=== PATIENT | female | born 1940 | race Caucasian/White ===

== ENCOUNTER 2016-09-21 14:06 | Emergency (ER) | payer MEDICARE, OTHER ==
[~2016-09-21 14:06] MED LIST: ACET500CAP PO; AMIT75 PO; ANUSOL HC SUPP1 SUPP PR; APRES25 PO; ASA5GR PO; ASAB PO; ASABAYER PO; ASAEC PO; BACDS PO; BIAXIN5 PO; BUM1 PO; C1 PO; C2 PO; CATAPRES3 TOP; CIP5 PO; CLEOCIN300 MG PO; COREG25 PO; COZ25 PO; COZ50 PO; DEXLANSOPRAZOLE 60 MG; DUONEB INH; FLEX PO; FORTAMET500 MG PO; GLUCOPHAGE1000 MG PO; HYDROCHLOROT12.5 MG PO; HYDROCHLOROT50 MG PO; IMDUR30 PO; IRON PO; IRON SUPPLEMENT PO; JANTOVEN1 MG PO; JANTOVEN2 MG PO; JANTOVEN2.5 MG PO; KLOR-CON M2020 MEQ PO; L20 PO; L40 PO; LANTUS SQ; LES40 PO; LIPITOR20 PO; LOPRESS HCT1 TAB PO; MAGOX4 PO; MEDROLPAK4 PO; MERIPEX; METPAKSF PO; MICRO-K10 MEQ PO; MIRAPEX1.5 MG PO; MIRAPEX5 PO; MUCINEX600 MG PO; NEXIUM40 PO; NITROQUICK0.4 MG SL; NORV10 PO; NORV5 PO; NTG150 SL; PRAVAC PO; PRILOSEC40 MG PO; PRIN20 PO; PROVHFA INH; PROVHFA PO; REFRES1 OP; RYTHMOL225 MG PO; SPIRO50 PO; SUCR PO; T PO; TRAZ50 PO; TRIAMCINOLONE C80 GM T; ZANTAC 150 PO; ZANTAC150 MG PO; ZANTAC300 MG PO; ZYRTEC ALLGY10 MG PO; [UNRECOGNIZED DRUG - REMARK]
== END 2016-09-21 16:09 | disposition home or self-care (01) ==
LOC: ER 14:06
PROC: 0HQGXZZ Repair Left Hand Skin, External Approach (ICD-10-PCS; principal; 2016-09-21)
DX: S61.412A Laceration without foreign body of left hand, initial encounter (principal); J44.9 Chronic obstructive pulmonary disease, unspecified; I10 Essential (primary) hypertension; I48.91 Unspecified atrial fibrillation; E11.9 Type 2 diabetes mellitus without complications; Z87.891 Personal history of nicotine dependence; Z86.73 Personal history of transient ischemic attack (TIA), and cerebral infarction without residual deficits; Z88.0 Allergy status to penicillin; Z88.8 Allergy status to other drugs, medicaments and biological substances; Z79.899 Other long term (current) drug therapy; Z79.82 Long term (current) use of aspirin; W45.8XXA Other foreign body or object entering through skin, initial encounter
CPT/HCPCS: 90471; 90714; 99283

== ENCOUNTER 2016-09-22 16:29 | Emergency (ER) | payer MEDICARE, OTHER ==
[2016-09-22 15:52] LABS: HEMOGLOBIN 10.1 g/dL (12.0-16.0); MEAN CORPUS HGB CONC 32.6 g/dL (32.0-36.0); MEAN CORPUSCULAR HEMOGLOB 27.2 pg (26.0-34.0); MEAN CORPUSCULAR VOLUME 83.6 fL (80-100); MEAN PLATELET VOLUME 9.6 fL (9.2-13.0); PLATELET COUNT 267 10/3/uL (150-400); RBC DISTRIBUTION WIDTH 15.4 % (12.0-16.0); RED CELL COUNT 3.71 10/6/uL (4.0-5.6); WHITE BLOOD CELLS 6.4 10/3/uL (4.5-10.5)
[2016-09-22 16:00] LABS: INTERNATIONAL NORMAL RATI 2.3 UNITS (-); PROTIME (NOT ORD) 24.9 SEC (12.0-14.5)
[2016-09-22 16:06] LABS: A/G RATIO 0.7 (0.7-1.9); ALBUMIN 3.1 G/DL (3.5-5.0); ALKALINE PHOSPHATASE 86 U/L (45-117); BUN (BLOOD UREA NITROGEN) 17 MG/DL (6-23); CALCIUM, SERUM 8.4 MG/DL (8.5-10.4); CHLORIDE, SERUM 100 MMOL/L (96-112); CO2 (CARBON DIOXIDE) 25 MMOL/L (24-34); CREATININE 0.87 MG/DL (0.55-1.02); GFR AFRICAN AMERICAN 75 ML/MIN (>=60); GFR NON AFRICAN AMERICAN 65 ML/MIN (>=60); GLOBULIN 4.2 G/DL (2.5-4.1); GLUCOSE, SERUM 98 MG/DL (60-99); POTASSIUM, SERUM 4.7 MMOL/L (3.5-5.3); SGOT(AST) 16 U/L (5-40); SGPT(ALT) 22 U/L (5-65); SODIUM, SERUM 136 MMOL/L (135-148); TOTAL BILIRUBIN 0.3 MG/DL (0-1.2); TOTAL PROTEIN 7.3 G/DL (6.0-8.5)
== END 2016-09-22 17:12 | disposition home or self-care (01) ==
LOC: ER 16:29
PROVIDERS: Emergency Medicine
DX: S61.412A Laceration without foreign body of left hand, initial encounter (principal); E11.9 Type 2 diabetes mellitus without complications; Z86.73 Personal history of transient ischemic attack (TIA), and cerebral infarction without residual deficits; I11.0 Hypertensive heart disease with heart failure; I50.9 Heart failure, unspecified; I48.91 Unspecified atrial fibrillation; W55.03XA Scratched by cat, initial encounter; Z88.0 Allergy status to penicillin; Z88.5 Allergy status to narcotic agent; Z88.8 Allergy status to other drugs, medicaments and biological substances; Z79.899 Other long term (current) drug therapy; Z79.82 Long term (current) use of aspirin
CPT/HCPCS: 80053; 85027; 85610; 99283

== ENCOUNTER 2016-10-28 15:04 | Inpatient (IN) | payer MEDICARE, OTHER ==
--- NOTE | ~2016-10-28 | DS ---
Discharge Summary [facility] [address] [place]. [address] NAME: JUSTA CASTILLO : 40 STATUS : DIS IN PAT#: [id number] AGE: 76 ADM/REG DATE : 10/28/16 MR#: [id number] REPORT SERV DATE: 11/01/16 DICTATED BY: WESLEY SEARS DATE: 10/31/16 REPORT STATUS : Draft TRANSCRIBED BY: MODVelma DATE: 10/31/16 ADMISSION DATE: 10/28/2016 DISCHARGE DATE: 10/31/2016 REASON FOR ADMISSION: Orthostatic hypotension, vasovagal syncope, dehydration, acute kidney injury. HPI: Please refer to my history and physical dated 10/28 for complete details regarding the patient's admission. In brief, the patient was admitted to the Hospitalist Service for vasovagal syncope, orthostasis, dehydration, UTI, hyponatremia. HOSPITAL COURSE: The patient had an uncomplicated hospital course. She just had been discharged from the ER for a hypertensive emergency episode. She was discharged with a prescription for lisinopril for which she did not get filled. She got home sometime between 2 a.m. and 4 a.m. Home health nurse had knocked on her door. The patient had woken up, and as soon as she stood up, she had passed out. She felt very weak. She had actually felt too weak that she crawled to the front door and had to use a cane to open up and let the home health nurse in. The home health nurse found her on the floor. She had checked her blood pressure and it was in the 80s and the home health nurse told her to come to the ER. In the ER, she was found to be normotensive at that time, but did have hyponatremia and acute kidney injury. The patient was admitted to the Hospitalist Service. I admitted the patient, started her on IV fluids. Her creatinine had come back down towards normal. UA was obtained, which showed an E. coli urinary tract infection for which antibiotics were started. Once we got her blood pressure up, we had issues trying to bring it back down. I started her on lisinopril 20 mg twice a day and scheduled with hydralazine. She had some systolic blood pressures in the 190s to 200s; however, the last 4 vital sign readings, her systolic blood pressure has ranged in between the 140s to 150s. On physical exam, a day or two after admission the patient was complaining of some wheezing and felt concerned that she might be having an acute on chronic COPD exacerbation, and started her on steroids. On the day of discharge, she still had some mild wheezing, but was ambulating without any issues. She did admit being short of breath on ambulation, but this is typical for her. She is saturating well on room air and is requesting to go home. The patient will be discharged home in stable condition to follow up with her PCP, Lizet Hernandez. DISCHARGE DIAGNOSES: 1. Acute kidney injury secondary to dehydration, now resolved. 2. Vasovagal syncope secondary to orthostasis, now resolved. 3. Dehydration, now resolved. 4. E. coli urinary tract infection, on oral antibiotics. 5. Acute on chronic COPD exacerbation developed in the hospital, now improving. 6. Hypovolemic hyponatremia, now resolved. 7. History of CVA. 8. Uncontrolled hypertension. PROCEDURES: Include chest x-ray. Discharge Summary [address] [address] NAME: JUSTA CASTILLO : 40 STATUS : DIS IN PAT#: [id number] AGE: 76 ADM/REG DATE : 10/28/16 MR#: [id number] REPORT SERV DATE: 11/01/16 DICTATED BY: WESLEY SEARS DATE: 10/31/16 REPORT STATUS : Draft TRANSCRIBED BY: ISMAEL DATE: 10/31/16 DISCHARGE MEDICATIONS: Include aspirin 81 mg daily, Coreg 25 mg twice a day, Mag oxide 400 mg daily, lisinopril 20 mg twice a day, Nexium 40 mg daily, Mirapex 1.5 mg at bedtime, Rythmol 225 mg twice a day, trazodone 50 mg at bedtime, Coumadin 2 mg daily, metformin 1000 mg twice a day, prednisone 40 mg once a day for four days, albuterol p.r.n., DuoNebs p.r.n., hydralazine 50 mg three times a day. FOLLOWUP: The patient will follow up with Dr. Ceballos as a new patient along with Lizet Hernandez This is Dr. Wesley Sears spending over 30 minutes in discharge planning and coordination of care. We will resume home health. CRISTINE/ISMAEL Wesley Sears MD / [id number] CC: Wesley Sears MD
--- NOTE | ~2016-10-28 | HP ---
History And Physical [place] [id number] [facility] [place]. [address] NAME: JUSTA CASTILLO : 40 STATUS : ADM [employer] PAT#: [id number] AGE: 76 ADM/REG DATE : 10/28/16 MR#: [id number] REPORT SERV DATE: 10/28/16 DICTATED BY: WESLEY SEARS DATE: 10/28/16 REPORT STATUS : Draft TRANSCRIBED BY: ISMAEL DATE: 10/28/16 DATE OF ADMISSION: 10/28/2016 REASON FOR ADMISSION: Vasovagal syncope, orthostasis, dehydration, and urinary tract infection. CHIEF COMPLAINT: "I passed out today and felt very weak and was told to come to the ER by the home health nurse." HISTORY OF PRESENT ILLNESS: A 76-year-old white female with a history of AFib, now currently in sinus after a cardioversion, on chronic Coumadin therapy with chronic diastolic heart failure; type 2 diabetes; COPD; hypertension, actually reported to the ER last night with a hypertensive emergency. Her systolic blood pressure was in the 230s. It was brought down and she was prescribed lisinopril. She was discharged between 2:00 and 4:00 a.m. this morning. She said she got a dose of some medication in the ER for pain, which made her fall asleep as soon as she got home. She woke up when the home health nurse knocked on her door. She went to get up out of bed to answer the door and then passed out as soon as she got up. She came to after a few seconds, but felt too weak and scooted herself to the door, used her cane to let the home health nurse come in. The home health nurse checked her blood pressure and it was reportedly in the 80s and the home health nurse told her she needs to go back to the ER. En route, she got a liter of fluids by the ambulance, and on arrival to the [facility] ER, her blood pressure was 111/50. She was given another liter bolus of lactated Ringer's by Dr. Cano and started on Rocephin. Hospitalist was asked to admit for further evaluation. The patient denies any fever or chills. She does admit to dysuria and a foul-smelling urine. She does admit to decreased p.o. intake. Denies any diarrhea, shortness of breath, or fever. REVIEW OF SYSTEMS: As per HPI. Otherwise, 10-point system were reviewed and are negative. PAST MEDICAL HISTORY: History of atrial fibrillation, now in sinus, on Coumadin therapy; chronic diastolic heart failure with a last known EF of 50% to 55%; [id number] type 2 diabetes; hypertension; COPD, not on home oxygen; coronary artery disease with a remote history of HI; history of CVA with upper extremity paresthesias; restless legs syndrome; and history of a GI bleed. PAST SURGICAL HISTORY: Cholecystectomy, bilateral total knee, abdominal hysterectomy, and back surgery. SOCIAL HISTORY: She was a former smoker, but quit many years ago. Denies any alcohol or illicit drug use. She is with children. FAMILY HISTORY: Mother with diabetes and coronary artery disease. Father with esophageal cancer. Sibling with COPD. ALLERGIES: INCLUDE PENICILLIN WHICH CAUSES HIVES, CARAFATE, CODEINE, FLAGYL, DEXILANT, AND History And Physical [address] [address] NAME: JUSTA CASTILLO : 40 STATUS : ADM [employer] PAT#: [id number] AGE: 76 ADM/REG DATE : 10/28/16 MR#: [id number] REPORT SERV DATE: 10/28/16 DICTATED BY: WESLEY SEARS DATE: 10/28/16 REPORT STATUS : Draft TRANSCRIBED BY: ISMAEL DATE: 10/28/16 [facility]. HOME MEDICATIONS: Include DuoNeb, albuterol p.r.n., aspirin 81 mg daily, carvedilol 25 mg twice a day, Nexium 40 mg daily, magnesium oxide 400 mg daily, Glucophage mg twice a day, Mirapex 1.5 mg at bedtime, Rythmol 225 mg twice a day, Desyrel 50 mg at bedtime, and Coumadin 2 mg daily. PHYSICAL EXAMINATION: VITAL SIGNS: Blood pressure is 124/54, saturating 96% on room air, temperature is 97.7, pulse is 60, and respirations 14. GENERAL: She is in no acute distress, alert and oriented x3, very pleasant, surrounded by lots of family. HEENT: Normocephalic and atraumatic head. Extraocular muscles are intact. Oropharynx is clear. NECK: Supple. No JVD. CARDIAC: Regular rhythm. No murmurs, rubs, or gallops. PULMONARY: Diffuse rhonchi. No wheezing. ABDOMEN: Soft, nontender, and nondistended. Positive bowel sounds. EXTREMITIES: Show no clubbing, no cyanosis or edema. NEUROLOGIC: No focal deficits. SKIN: Warm and dry. PSYCHIATRIC: The patient is cooperative. Mood is appropriate. LABORATORY DATA: Labs show a white blood cell count of 3.5 and hemoglobin 9.5. Sodium of 131, chloride 95, BUN 24, creatinine 1.51, and albumin 2.8. UA shows cloudy appearance, positive leukocytes, 38 white blood cell count, few white blood cell clumps, few bacteria, and 7 hyaline casts. X-ray of the ribs shows no acute process. CT scan of brain without contrast shows no acute intracranial hemorrhage or other acute process. EKG shows sinus rhythm with first-degree AV block. IMPRESSION: 1. Vasovagal syncope. 2. Orthostasis. 3. Dehydration. 4. Urinary tract infection. 5. Hypovolemic hyponatremia. 6. History of atrial fibrillation, currently in sinus, on Coumadin. 7. Chronic obstructive pulmonary disease without exacerbation. 8. History of cerebrovascular accident. PLAN: 1. Plan is to do IV fluids. 2. Continue Rocephin. 3. Follow up her urine culture. 4. Check orthostatics tomorrow to see if she is fully hydrated. The patient is a full code. Anticipate her home in about two to three days. History And Physical [address] [address] NAME: JUSTA CASTILLO : 40 STATUS : ADM [employer] PAT#: [id number] AGE: 76 ADM/REG DATE : 10/28/16 MR#: [id number] REPORT SERV DATE: 10/28/16 DICTATED BY: WESLEY SEARS DATE: 10/28/16 REPORT STATUS : Draft TRANSCRIBED BY: ISMAEL DATE: 10/28/16 SAMI Wesley Sears MD / [id number] CC: Eduardo Roberts Jr, MD
[2016-10-28 15:47] LABS: BASOPHILS 0 %; EOSINOPHILS 0.3 %; EOSINOPHILS ABSOLUTE 0.01 10/3/uL (0.0-0.53); ER CBC TAT 0 Hrs 12 Mins; HEMATOCRIT 28.8 % (36.0-48.0); HEMOGLOBIN 9.5 g/dL (12.0-16.0); IMMATURE GRANULOCYTES 0.3 %; IMMATURE GRANULOCYTES ABSOLUTE 0.01 10/3/uL (0.0-0.11); LYMPHOCYTES 37.9 %; LYMPHOCYTES ABSOLUTE 1.33 10/3/uL (0.67-4.30); MEAN CORPUSCULAR HEMOGLOB 27.4 pg (26.0-34.0); MONOCYTES 10.5 %; MONOCYTES ABSOLUTE 0.37 10/3/uL (0.21-1.20); NEUTROPHILS ABSOLUTE 1.79 10/3/uL (2.02-8.40); PLATELET COUNT 227 10/3/uL (150-400); RBC DISTRIBUTION WIDTH 15.3 % (12.0-16.0); RED CELL COUNT 3.47 10/6/uL (4.0-5.6); WHITE BLOOD CELLS 3.5 10/3/uL (4.5-10.5)
[2016-10-28 15:48] LABS: MANUAL DIFF NO %
[2016-10-28 16:01] LABS: A/G RATIO 0.8 (0.7-1.9); ALBUMIN 2.8 G/DL (3.5-5.0); ALKALINE PHOSPHATASE 74 U/L (45-117); BUN (BLOOD UREA NITROGEN) 24 MG/DL (6-23); CALCIUM, SERUM 7.5 MG/DL (8.5-10.4); CHLORIDE, SERUM 95 MMOL/L (96-112); CO2 (CARBON DIOXIDE) 22 MMOL/L (24-34); CREATININE 1.51 MG/DL (0.55-1.02); GFR AFRICAN AMERICAN 39 ML/MIN (>=60); GFR NON AFRICAN AMERICAN 33 ML/MIN (>=60); GLOBULIN 3.7 G/DL (2.5-4.1); GLUCOSE, SERUM 105 MG/DL (60-99); SGOT(AST) 31 U/L (5-40); SGPT(ALT) 33 U/L (5-65); SODIUM, SERUM 131 MMOL/L (135-148); TOTAL BILIRUBIN 0.7 MG/DL (0-1.2); TOTAL PROTEIN 6.5 G/DL (6.0-8.5); TROPONIN I 0.03 NG/ML (<0.05)
[2016-10-28 16:55] LABS: ASCORBIC ACID (UR NOT ORDER) NEG (NEG); BILIRUBIN, URINE NEGATIVE (NEG); ER URINALYSIS TAT 0 Hrs 10 Mins; KETONE, URINE NEGATIVE (NEG); NITRITE (URINE) NEG (NEG); WBC (NOT ORDERED) (RFLEX) 38 (0-5)
[2016-10-28 16:56] LABS: LEUKOCYTE ESTERASE(NOT OR TRACE (NEG)
[2016-10-28 20:24] LABS: PROCALCITONIN 0.67 ng/mL (<0.5)
[2016-10-28 20:25] LABS: INTERNATIONAL NORMAL RATI 1.7 UNITS (-); PROTIME (NOT ORD) 19.4 SEC (12.0-14.5)
[2016-10-29 08:03] LABS: BASOPHILS 0.3 %; BASOPHILS ABSOLUTE 0.01 10/3/uL (0.0-0.16); EOSINOPHILS 1.5 %; EOSINOPHILS ABSOLUTE 0.05 10/3/uL (0.0-0.53); HEMATOCRIT 26.6 % (36.0-48.0); HEMOGLOBIN 8.8 g/dL (12.0-16.0); IMMATURE GRANULOCYTES 0.3 %; IMMATURE GRANULOCYTES ABSOLUTE 0.01 10/3/uL (0.0-0.11); LYMPHOCYTES 38.1 %; LYMPHOCYTES ABSOLUTE 1.25 10/3/uL (0.67-4.30); MEAN CORPUS HGB CONC 33.1 g/dL (32.0-36.0); MEAN CORPUSCULAR HEMOGLOB 27.6 pg (26.0-34.0); MEAN CORPUSCULAR VOLUME 83.4 fL (80-100); MEAN PLATELET VOLUME 9.3 fL (9.2-13.0); MONOCYTES 9.1 %; NEUTROPHILS 50.7 %; NEUTROPHILS ABSOLUTE 1.66 10/3/uL (2.02-8.40); PLATELET COUNT 210 10/3/uL (150-400); RBC DISTRIBUTION WIDTH 15.3 % (12.0-16.0); RED CELL COUNT 3.19 10/6/uL (4.0-5.6); WHITE BLOOD CELLS 3.3 10/3/uL (4.5-10.5)
[2016-10-29 08:08] LABS: MANUAL DIFF NO %
[2016-10-29 08:12] LABS: INTERNATIONAL NORMAL RATI 1.6 UNITS (-)
[2016-10-29 08:30] LABS: BUN (BLOOD UREA NITROGEN) 27 MG/DL (6-23); CALCIUM, SERUM 7.3 MG/DL (8.5-10.4); CHLORIDE, SERUM 99 MMOL/L (96-112); CO2 (CARBON DIOXIDE) 23 MMOL/L (24-34); CREATININE 1.11 MG/DL (0.55-1.02); GFR AFRICAN AMERICAN 56 ML/MIN (>=60); GFR NON AFRICAN AMERICAN 48 ML/MIN (>=60); GLUCOSE, SERUM 102 MG/DL (60-99); PHOSPHORUS, SERUM 4.2 MG/DL (2.5-4.5); POTASSIUM, SERUM 3.8 MMOL/L (3.5-5.3); SODIUM, SERUM 134 MMOL/L (135-148)
[2016-10-30 06:00] LABS: INTERNATIONAL NORMAL RATI 1.9 UNITS (-); PROTIME (NOT ORD) 21.2 SEC (12.0-14.5)
[2016-10-31 06:34] LABS: INTERNATIONAL NORMAL RATI 2.3 UNITS (-)
[2016-10-31] MEDS ORDERED: PRIN20 PO (12:22)
[2016-10-31] MEDS ORDERED: P20 PO (12:24)
[2016-10-31] MEDS ORDERED: APRES50 PO (12:26)
[2016-10-31] MEDS ORDERED: CEFT5 PO (12:26)
== END 2016-10-31 17:27 | disposition home or self-care (01) | DRG 683 ==
LOC: ER 15:04 → CDU1 17:41 → 7NO 18:06
PROVIDERS: Emergency Medicine; Internal Medicine
DX: N17.9 Acute kidney failure, unspecified (principal); N39.0 Urinary tract infection, site not specified; E11.9 Type 2 diabetes mellitus without complications; E87.1 Hypo-osmolality and hyponatremia; E86.0 Dehydration; I11.0 Hypertensive heart disease with heart failure; I50.32 Chronic diastolic (congestive) heart failure; J44.9 Chronic obstructive pulmonary disease, unspecified; I48.91 Unspecified atrial fibrillation; J44.1 Chronic obstructive pulmonary disease with (acute) exacerbation; B96.20 Unspecified Escherichia coli [E. coli] as the cause of diseases classified elsewhere; I25.2 Old myocardial infarction; Z86.73 Personal history of transient ischemic attack (TIA), and cerebral infarction without residual deficits; Z79.01 Long term (current) use of anticoagulants; Z96.653 Presence of artificial knee joint, bilateral; Z90.49 Acquired absence of other specified parts of digestive tract; Z87.891 Personal history of nicotine dependence; Z88.0 Allergy status to penicillin; Z79.84 Long term (current) use of oral hypoglycemic drugs; Z79.82 Long term (current) use of aspirin; Z79.899 Other long term (current) drug therapy
CPT/HCPCS: 70450; 71010; 71020; 71100-RT; 80048; 80053; 81001; 82962; 83605; 83735; 83880; 84100; 84145; 84484; 85025; 85610; 85730; 87077; 87086; 87186; 93005; 94640; 96360; 96374; 96375; 99284; 99285; A9270-GY; J0360

== ENCOUNTER 2016-11-01 15:11 | Inpatient (IN) | payer MEDICARE, OTHER ==
--- NOTE | ~2016-11-01 | HP ---
History And Physical [place] [id number] [facility] [place]. [address] NAME: JUSTA CASTILLO : 40 STATUS : ADM [employer] PAT#: [id number] AGE: 76 ADM/REG DATE : 11/01/16 MR#: [id number] REPORT SERV DATE: 11/02/16 DICTATED BY: DANA WELSH DATE: 11/01/16 REPORT STATUS : Draft TRANSCRIBED BY: MODVelma DATE: 11/01/16 DATE OF ADMISSION: 11/01/2016 Recent discharge yesterday. CHIEF COMPLAINT: Hallucinations with recurrent syncope, post going to the bathroom. HISTORY OF PRESENT ILLNESS: The patient is a 76-year-old very pleasant, female, accompanied by daughter, granddaughter, and great granddaughter who presents after having repeat episode of syncope like event. Episode occurred this morning after the patient woke up, went to bathroom and on toilet noted that she was unable to get up, had assistance by daughter, noted she had mild unconscious type spell which became cool, had tingling in extremities and somewhat unresponsive. When she started to wake up, she had delirium episodes which prompted emergency room evaluation, was noted to have episodes similar to this after going to the bathroom in the morning. The patient reports that after she left the hospital yesterday she was feeling a lot better and had resolution of symptoms, felt comfortable but symptoms appeared to comes directly back after this morning. Symptoms have been intermittent, [id number]-vzflqlle. Hallucinations including seeing great granddaughter coming from the [place] which she was unable to hold but these have also resolved as the patient has been in a hospital bed lying down and blood pressure has significantly improved from 50 plus points systolically. There are no pain radiating symptoms except at the chest wall in which she had a recent bruising of rib, not fracture but bruising, mild nausea, increased weakness but these are improved. No fever, diarrhea, shortness of breath or chills, has not taken any medications yet, has not been able to fill medications including prednisone and doubt this is a causal agent for acute hallucinations. Symptoms are worsened with change in position improved by lying down. Symptoms, however, spontaneously improved at time of discussion with this proposal manager writer, as the patient recalls having prior admission and discussion prior time in past in July. Family additionally has concerns with medication compliance as she has had elevations and decreases with wide fluctuations of blood pressure medications or blood pressure as the patient also per granddaughter reports that last year she was noted to being adamant that she was taking diuretic but had not filled this medication over six months when this was reviewed with pharmacy. This concern has also been brought up by the patient's event services manager to family as a dementia component may be causal. ADDITIONAL REVIEW OF SYSTEMS: Negative except for that noted in the HPI. PAST MEDICAL HISTORY: Atrial fibrillation, on Coumadin, currently sinus, chronic diastolic heart failure, EF 50% to 55% [id number]-qmgsyumqv diabetes, hypertension, COPD, coronary artery disease, CVA, restless leg, GI bleed. SURGICAL HISTORY: Cholecystectomy, bilateral total knee, abdominal hysterectomy, and back surgery. SOCIAL HISTORY: Former smoker but quit many years ago. Denies alcohol or illicits. Has children and grandchildren and great grandchildren in room. History And Physical [address] [address] NAME: JUSTA CASTILLO : 40 STATUS : ADM [employer] PAT#: [id number] AGE: 76 ADM/REG DATE : 11/01/16 MR#: [id number] REPORT SERV DATE: 11/02/16 DICTATED BY: DANA WELSH DATE: 11/01/16 REPORT STATUS : Draft TRANSCRIBED BY: ISMAEL DATE: 11/01/16 FAMILY HISTORY: Coronary disease, esophageal cancers, siblings with COPD. ALLERGIES: PENICILLIN, CARAFATE, CODEINE, FLAGYL, DEXILANT, AND MAYONNAISE. HOME MEDICATIONS: Including recent discharge including albuterol, Proventil, aspirin, Coreg, Ceftin which the patient has not started, Nexium, hydralazine which has also not been filled, Prinivil new dose has not been started, Mag oxide, metformin Mirapex, Deltasone which has not been taken yet, Rythmol, trazodone, and warfarin. EKG: Normal sinus rhythm, low voltage QRS, QTc 445 with a rate of 64, repeat EKG in a.m. PHYSICAL EXAMINATION: VITAL SIGNS: The patient's blood pressure 117/47 on arrival, positive tilts currently at 155/63, temperature 96.6, pulse 64, respirations 18, O2 sats 100% on 2 L by nasal cannula. GENERAL: Elderly, no acute distress. Mildly obese. EYES: No scleral icterus. EOMI. ENT: Nares patent. Tongue midline. Moist mucous membranes. RESPIRATORY: Clear to auscultation. No wheezes. CV: Regular rate. No rubs. Trace edema. GI: Soft, nontender, nondistended. Bowel sounds positive. : Deferred. MUSCULOSKELETAL: Moves all extremities. Does have tenderness to ribs. SKIN: Warm and dry, no erythema. LYMPH: Mild or trace edema. HEME: No bleeding or bruising. NEURO: Alert and oriented currently to person, place, and situation who is reported earlier to have delirium . The patient recalls this delirium. PSYCH: Non-anxious, pleasant. No suicidal or homicidal ideations, resolution of hallucinations also. LABS: CTA chest, negative PE. Does have well-circumscribed soft tissue density 3.1 x 2.7 unchanged from 2009. Brain without contrast, old chronic deep white matter ischemic changes. No acute changes. Portable chest, no acute findings. ABG; pH 7.32, pCO2 of 42, pO2 of 80, bicarb 21.4, BNP 239.7. Sodium 137, potassium 4.1, chloride 103, bicarb 26, BUN creatinine 24 and 1.21, glucose 132, calcium 7.6, magnesium 1.7. Troponin negative. Heme profile, WBC 7.0, H and H 9.1 and 28.0, platelets 214, and INR 3.2. ASSESSMENT/PLANS: 1. Hallucinations with delirium. 2. Vasovagal syncope. 3. Possible dementia, questionable med compliance. History And Physical [address] [address] NAME: JUSTA CASTILLO : 40 STATUS : ADM [employer] PAT#: [id number] AGE: 76 ADM/REG DATE : 11/01/16 MR#: [id number] REPORT SERV DATE: 11/02/16 DICTATED BY: DANA WELSH DATE: 11/01/16 REPORT STATUS : Draft TRANSCRIBED BY: MODVelma DATE: 11/01/16 4. Atrial fibrillation with arrhythmia, currently sinus. 5. Chronic obstructive pulmonary disease. 6. E. coli, on p.o. medications. PLAN: 1. For hallucinations delirium, this acutely occurred after hypotensive vasovagal symptoms, has had resolution of delirium after blood pressure has stabilized. I doubt this is secondary to prednisone as the patient has not taken her prednisone dose today and the patient is currently on treatment for E. coli but has had resolution of delirium. The patient does not have any suicidal or homicidal ideations although the patient has reported to nurse that she said due to multiple episodes she reports that if the lord wishes to take her she was ready to go but denies any thoughts of harming herself or any plan and is adamant that she did not have any type of suicidal ideation. This was also reported by family who is at bedside. The patient was expressing frustration of being sick but does have positive family support and spiritual support. 2. Vasovagal syncope, postmicturition this a.m. with positive orthostasis and tilts. I will check orthostatics every shift. The patient has not started new blood pressure medication changes. We will also check a.m. cortisol. If she does have changes continued with blood pressure may consider metanephrine workup, however, when discussion with family, I had concern for possible noncompliance or accidental medication administration as the patient has notable at times 100 point swing of systolic blood pressures although the patient reports compliance with all medications. 3. Possible dementia, concern per family and event services manager. Variable med compliance may also be component. We will ask Psychiatry to evaluate as the patient's nurse reports concerns for depression. Again, the patient does not have any acute suicidal or homicidal ideations, thoughts, or plans but would like to have psychiatry evaluation. 4. Arrhythmia. Continue home medications. 5. Chronic obstructive pulmonary disease, O2 DuoNeb as needed. 6. E. coli, recently. Continue antibiotics p.o. We will need Case Management help for disposition and possible additional close monitoring of medication administration. Family very supportive at bedside and willing to help if possible. DDN/MODL Dana Welsh MD / [id number] CC: Eduardo Roberts Jr, MD
--- NOTE | ~2016-11-01 | DS ---
Discharge Summary [place] [address] [facility] [place]. [address] NAME: JUSTA CASTILLO : 40 STATUS : DIS IN PAT#: [id number] AGE: 76 ADM/REG DATE : 11/03/16 MR#: [id number] REPORT SERV DATE: 11/07/16 DICTATED BY: DIAZ ULLOA DATE: 11/06/16 REPORT STATUS : Draft TRANSCRIBED BY: MODVelma DATE: 11/06/16 ADMISSION DATE: 11/03/2016 DISCHARGE DATE: 11/06/2016 DISCHARGE DIAGNOSES: Include: 1. Syncope that is recurrent. 2. Uncontrolled hypertension that is improved. 3. Acute chronic obstructive pulmonary disease exacerbation and bronchitis. 4. Anemia of iron deficiency with positive Hemoccult. 5. Abdominal pain and diarrhea that has resolved. 6. Hallucinations and delirium that have resolved. 7. History of chronic diastolic heart failure. 8. History of cerebrovascular accident. 9. Encephalopathy that is multifactorial, resolved. 10.Diabetes type 2, hemoglobin A1c is 6.1. 11.History of Escherichia coli urinary tract infection, treated. 12. 13.Chronic atrial fibrillation, on chronic Coumadin therapy and most recent INR 2.1. 14. DISCHARGE MEDICATIONS: 1. Aspirin 81 mg daily. 2. Coreg 25 mg twice a day. 3. Norvasc 5 mg twice a day, prescription written for that. 4. Hydrochlorothiazide 12.5 mg daily, prescription written for that. 5. Lisinopril 20 mg twice a day. 6. Magnesium oxide 400 mg daily. 7. Nexium 40 mg daily. 8. Mirapex 1.5 mg at bedtime. 9. Rythmol 225 mg twice a day. 10.Hydralazine 50 mg every eight hours. 11.Glucophage 1000 mg twice a day. 12.Albuterol two puffs inhaled every four hours p.r.n. for shortness of breath. 13.Coumadin 2 mg daily. 14.DuoNeb inhaled twice a day. 15.Prednisone 40 mg daily for four more days. HISTORY OF PRESENT ILLNESS: This is a very pleasant 76-year-old white female who presented with hallucinations and recurrent syncope while going to bathroom. Please see initial H and P of Dr. Jesus Welsh as the patient was admitted to the Hospitalist Service further evaluation and treatment. CONSULTS DURING THIS ADMISSION: Include: 1. Psychiatry, Dr. Chele Goodman. 2. Nephrology, Dr. Laron Woody. 3. GI, Dr. June Menjivar. Discharge Summary [place] [address] [address] NAME: JUSTA CASTILLO : 40 STATUS : DIS IN PAT#: [id number] AGE: 76 ADM/REG DATE : 11/03/16 MR#: [id number] REPORT SERV DATE: 11/07/16 DICTATED BY: DIAZ ULLOA DATE: 11/06/16 REPORT STATUS : Draft TRANSCRIBED BY: MODVelma DATE: 11/06/16 HOSPITAL COURSE: The patient was seen by Psychiatry, Dr. Chele Goodman, who recommended medication changes of reducing her Mirapex dosage and getting rid of her trazodone as this could be contributed to her syncopal spells. Orthostatics were monitored very closely, and she did not have any further positive orthostatics, but was quite hypertensive, which necessitated numerous medication adjustments and additional blood pressure medicines. Given the uncontrolled nature of her blood pressure, Nephrology was also consulted and she had a renal artery ultrasound, which was within normal limits showing no renal artery stenosis. She was treated with nebulizers, oxygen therapy, steroids, and antibiotics for her COPD exacerbation. This began to resolve slowly each day. Her blood work was followed closely as well as she was anemic, and she did have a positive Hemoccult, which when evaluated by TRINI, was determined that she would simply need to follow up with Dr. Clark as an outpatient for considerations of scope then. Her mental status improved each day, and she is completely alert and oriented as of this discharge summary. She has been able to ambulate in the hallway on room air, and her sat is approximately 92%. So, the patient was felt safe for discharge home with outpatient followup with her primary care, Dr. Hernandez, in 10 to 14 days to further discuss her hypertension and blood pressure medicine adjustments. Follow up with TRINI Stack, in two to three weeks. We will have home health do an overnight oximetry test on room to further assess her potential oxygen requirements. I have updated the patient at bedside of discharge. She is in agreement with this plan going forward and for followup plan. Please note, greater than 30 minutes were spent on this discharge for medication teaching, followup planning, further disposition. She is also given IV iron infusion for three days during this admission and will continue ferrous sulfate p.o. b.i.d. and prescription, we will write for that as well. GRACIELA/ISMAEL Diaz Ulloa NP / [id number] CC: Beatriz Herrera M.D.
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
--- NOTE | ~2016-11-01 | CN ---
Consultation Report [facility] [address] [place]. [address] NAME: JUSTA BAKER : 40 STATUS : ADM IN PAT#: [id number] AGE: 76 ADM/REG DATE : 11/03/16 MR#: [id number] REPORT SERV DATE: 11/03/16 DICTATED BY: CT MULLINS DATE: 11/03/16 REPORT STATUS : Draft TRANSCRIBED BY: MODVelma DATE: 11/03/16 NEPHROLOGY CONSULT DATE OF CONSULTATION: 11/03/2016 REASON FOR CONSULT: Difficult to control hypertension. HISTORY OF PRESENT ILLNESS: Ms. Baker is a very pleasant 76-year-old white female who has a longstanding history of hypertension that has become difficult to control over the last six weeks. She was hospitalized in July with COPD and diastolic dysfunction exacerbation. In August, she was admitted for cardioversion of atrial fibrillation. She was here last week in the ER on 10/27/2016 with syncopal episode and hypertensive urgency, but was sent home when blood pressure was controlled in the ER. She went home only to return the next day and was admitted for another syncopal episode from 10/28/2016 until 10/31/2016. She went home to return again on 11/01/2016 with another episode of syncope at home associated with hallucinations. Here, CT of the brain showed no acute PARKING [employer]NFOR[employer]ER changes. Chest x-ray shows no active process. CTA showed no PE. Her blood pressure is 170s over 80s. An echo in May 2016 showed EF 55% with mild diastolic dysfunction and RVSP of 21 mmHg. She has a long smoking history x40 years, but quit in 1997. She recently has had wide fluctuation in her blood pressures at home associated with one episode of impending doom and occasional sweats. She has had headaches and blurry vision. She has two to three cups of caffeine a day in the form of coffee, but denies herbs or supplement use. PAST MEDICAL HISTORY: 1. COPD. 2. Hypertension. 3. History of stroke/TIA. 4. NIDDM with A1c 6.1%. 5. PAD with stent, left SFA in 2014. 6. Atrial fibrillation, on Coumadin, status post DCCV in August 2016. CURRENT MEDICATIONS: Include aspirin, Coreg 25 mg b.i.d., Ceftin 500 mg b.i.d., Klonopin, sliding scale insulin, hydralazine 50 mg t.i.d., Prinivil 20 mg b.i.d., magnesium, Glucophage, Protonix, Mirapex, prednisone 40 mg daily, Rythmol 225 mg b.i.d., and sliding scale Coumadin. FAMILY HISTORY: Noncontributory. SOCIAL HISTORY: Former remote smoker. . Retired. Lives in [place]. Has supportive family. REVIEW OF SYSTEMS: Please see HPI for details. Consultation Report [facility] [address] [place]. [address] NAME: JUSTA BAKER : 40 STATUS : ADM IN [facility]#: [id number] AGE: 76 ADM/REG DATE : 11/03/16 MR#: [id number] REPORT SERV DATE: 11/03/16 DICTATED BY: CT MULLINS DATE: 11/03/16 REPORT STATUS : Draft TRANSCRIBED BY: ISMAEL DATE: 11/03/16 PHYSICAL EXAMINATION: VITAL SIGNS: Temperature 98.1, pulse 96, respirations 16, blood pressure 177/79, and 94% saturation on room air. GENERAL: She is a very pleasant elderly white female, excellent historian, awake, alert, oriented, cooperative with the exam, in no distress. HEENT: Sclerae are without icterus. Conjunctivae are not injected. Fundi are not examined. NECK: No JVD. LUNGS: Diffuse bilateral rhonchi with expiratory wheezing, but no dyspnea or tachypnea at rest. HEART: Regular rate and rhythm. Audible S4, 2/6 murmur. ABDOMEN: Obese, soft, nontender, and nondistended. Bowel sounds are present throughout without rebound, guarding, or peritoneal signs. Unable to evaluate for bruits, abdominal. EXTREMITIES: With trace edema. SKIN: Shows diffuse ecchymoses and chronic bruising without rash. MUSCULOSKELETAL: Shows previous bilateral knee replacements. No active gout or tenosynovitis. NEURO: Grossly nonfocal. LABORATORY DATA: Sodium 135, potassium 4.6, bicarb 27, creatinine 0.7, calcium 8.5, and magnesium 1.5. White count 5.7, hemoglobin 8.9, iron saturation 8%, and platelets 223,000. INR 2.4. ASSESSMENT AND PLAN: Ms. Baker has developed jgjmpsjev-ka-xutknzk hypertension in the setting of chronic atrial fibrillation; urinary tract infection; hypomagnesemia; non-insulin dependent diabetes mellitus; peripheral artery disease; and iron deficiency anemia, on anticoagulation. The reason for her xebdoqoqp-bk-vrandbw hypertension is unclear at this point. With her previous longstanding history of tobacco use and peripheral artery disease, need to evaluate for renal artery stenosis. I agree with renal artery Doppler. We will follow up results when available. Other considerations include possibility of pheochromocytoma and adrenal hyperplasia versus tumor. Check renin and aldosterone levels and plasma catecholamines. Replace magnesium. Check stool for occult blood, dose IV iron. Continue current medications. Watch closely. Hopefully, reason for her secondary hypertension will be discovered on workup. We will follow closely with you and appreciate consult. HERBERTH/ISMAEL Ct Mullins M.D. Consultation Report [address] [address] NAME: JUSTA BAKER : 40 STATUS : ADM IN PAT#: [id number] AGE: 76 ADM/REG DATE : 11/03/16 MR#: [id number] REPORT SERV DATE: 11/03/16 DICTATED BY: CT MULLINS DATE: 11/03/16 REPORT STATUS : Draft TRANSCRIBED BY: ISMAEL DATE: 11/03/16 / [id number] CC: Sangita Alvarez NP
--- NOTE | ~2016-11-01 | CN ---
Consultation Report [facility] [address] [place]. [address] NAME: JUSTA BAKER : 40 STATUS : ADM IN PAT#: [id number] AGE: 76 ADM/REG DATE : 11/03/16 MR#: [id number] REPORT SERV DATE: 11/06/16 DICTATED BY: МАРИЯ MENJIVAR DATE: 11/06/16 REPORT STATUS : Draft TRANSCRIBED BY: ISMAEL DATE: 11/06/16 GI CONSULTATION DATE OF CONSULTATION: 11/06/2016 REFERRING PHYSICIAN: Hospitalist Service REASON FOR CONSULTATION: Heme-positive stool and anemia. HISTORY OF PRESENT ILLNESS: Ms Baker is a 76-year-old lady who was admitted on 11/01/2016 with hallucination and recurrent syncope after going to the bathroom. She was discharged from the hospital on 10/31/2016 for orthostatic hypotension, vasovagal syncope, acute kidney injury, and dehydration. She has also had an episode of hypertensive emergency. As mentioned, we were consulted for the above reason. Going through her workup in the past, on 12/17/2015, she had an EGD and a colonoscopy by Dr. Clark, noting significant was found there. Her hemoglobin has been low to begin with and it has not changed the whole lot. Hemoglobin this morning was 9.2, yesterday it was 8.1, the day before it was 9.1. On 10/27/2016, it was 10.1; on 10/07/2016, it was 9.1. The highest recorded is on 09/05/2016, it was 11.1, so basically hemoglobin has been up and down, but has not changed, and going as far back as 06/15/2016, it was 10.1. With a workup done less than a year ago and with hemoglobin and hematocrit not changing a whole lot, I really do not believe any further workup needs to be done in the hospital. PAST MEDICAL HISTORY: COPD, hypertension, history of CVA, grz-euzqnkc-vzjjahkhp diabetes, peripheral arterial disease with stent, and history of atrial fibrillation, on Coumadin. HOME MEDICATIONS: Aspirin, Ceftin, Klonopin, hydralazine, Prinivil, Coumadin, Rythmol, prednisone, Mirapex, Protonix, and Glucophage. PHYSICAL EXAMINATION: GENERAL: She is a fully alert and oriented lady, in no distress with stable vital signs. LUNGS AND CVS: Normal. ABDOMEN: Benign. STUDIES: All labs have been reviewed. IMPRESSION: Anemia and heme-positive stool, this has been chronic. Recent workup less than a year ago. As mentioned above, hemoglobins have all been low, but stable. RECOMMENDATIONS: No GI workup indicated at this point. When discharged, please make sure the patient follows up with Dr. Clark for further followup and workup if needed. Consultation Report [address] [place]. [address] NAME: JUSTA BAKER : 40 STATUS : ADM IN PAT#: [id number] AGE: 76 ADM/REG DATE : 11/03/16 MR#: [id number] REPORT SERV DATE: 11/06/16 DICTATED BY: МАРИЯ MENJIVAR DATE: 11/06/16 REPORT STATUS : Draft TRANSCRIBED BY: ISMAEL DATE: 11/06/16 VOCATIONAL GUIDANCE COUNSELOR/ISMAEL June Menjivar M.D. / [id number] CC: Sangita Springer M.D.
[2016-11-01 14:50] LABS: BASOPHILS 0.1 %; BASOPHILS ABSOLUTE 0.01 10/3/uL (0.0-0.16); EOSINOPHILS 0.1 %; EOSINOPHILS ABSOLUTE 0.01 10/3/uL (0.0-0.53); HEMOGLOBIN 9.1 g/dL (12.0-16.0); IMMATURE GRANULOCYTES 0.3 %; IMMATURE GRANULOCYTES ABSOLUTE 0.02 10/3/uL (0.0-0.11); LYMPHOCYTES 23.9 %; LYMPHOCYTES ABSOLUTE 1.68 10/3/uL (0.67-4.30); MEAN CORPUS HGB CONC 32.5 g/dL (32.0-36.0); MEAN CORPUSCULAR HEMOGLOB 27.3 pg (26.0-34.0); MEAN CORPUSCULAR VOLUME 84.1 fL (80-100); MEAN PLATELET VOLUME 9.4 fL (9.2-13.0); MONOCYTES 5.4 %; MONOCYTES ABSOLUTE 0.38 10/3/uL (0.21-1.20); NEUTROPHILS 70.2 %; NEUTROPHILS ABSOLUTE 4.94 10/3/uL (2.02-8.40); PLATELET COUNT 214 10/3/uL (150-400); RBC DISTRIBUTION WIDTH 15.7 % (12.0-16.0); RED CELL COUNT 3.33 10/6/uL (4.0-5.6)
[2016-11-01 14:51] LABS: ER CBC TAT 0 Hrs 05 Mins; MANUAL DIFF NO %
[2016-11-01 14:57] LABS: INTERNATIONAL NORMAL RATI 3.2 UNITS (-); PARTIAL THROMBO TIME 54.5 SEC (22.5-37.2)
[2016-11-01 14:58] LABS: PROTIME (NOT ORD) 32.2 SEC (12.0-14.5)
[2016-11-01 15:05] LABS: BUN (BLOOD UREA NITROGEN) 24 MG/DL (6-23); CALCIUM, SERUM 7.6 MG/DL (8.5-10.4); CHEST PAIN PROFILE TAT 0 Hrs 19 Mins; CHLORIDE, SERUM 103 MMOL/L (96-112); CO2 (CARBON DIOXIDE) 26 MMOL/L (24-34); CREATININE 1.21 MG/DL (0.55-1.02); GFR AFRICAN AMERICAN 50 ML/MIN (>=60); GFR NON AFRICAN AMERICAN 43 ML/MIN (>=60); POTASSIUM, SERUM 4.1 MMOL/L (3.5-5.3); SODIUM, SERUM 137 MMOL/L (135-148); TROPONIN I <0.02 NG/ML (<0.05)
[2016-11-01 15:06] LABS: GLUCOSE, SERUM 132 MG/DL (60-99)
[~2016-11-01 15:11] MED LIST changes: +APRES50 PO; +CEFT5 PO; +P20 PO
[2016-11-01 15:26] LABS: ALLENS TEST Pos; BE (BASE EXCESS) -4.5 MEQ/L (0 +/- 2.5); CARBOXYHEMOGLOBIN 1.7 % (0-3); HCO3 (ACTUAL BICARBONATE) 21.4 MEQ/L (23-27); HEMOBLOGIN CONTENT 9.1 G/DL (12-16); INSTRUMENT SERIAL # 8087; METHEMOGLOBIN 0.1 % (0-3); OPERATOR ID 14335; PCO2 (CO2 TENSION) 42 MMHG (35-45); PO2 (O2 TENSION) 80 MMHG (79-93); SAMPLE Arterial; pH 7.32 (7.37-7.43)
[2016-11-01 19:50] LABS: ASCORBIC ACID (UR NOT ORDER) NEG (NEG); BILIRUBIN, URINE NEGATIVE (NEG); ER URINALYSIS TAT 0 Hrs 15 Mins; KETONE, URINE NEGATIVE (NEG); LEUKOCYTE ESTERASE(NOT OR TRACE (NEG); NITRITE (URINE) NEG (NEG); WBC (NOT ORDERED) (RFLEX) 2 (0-5)
[2016-11-02 05:33] LABS: BASOPHILS 0.2 %; BASOPHILS ABSOLUTE 0.01 10/3/uL (0.0-0.16); EOSINOPHILS 0.9 %; EOSINOPHILS ABSOLUTE 0.04 10/3/uL (0.0-0.53); HEMATOCRIT 25.6 % (36.0-48.0); HEMOGLOBIN 8.4 g/dL (12.0-16.0); LYMPHOCYTES 46.2 %; LYMPHOCYTES ABSOLUTE 1.97 10/3/uL (0.67-4.30); MEAN CORPUS HGB CONC 32.8 g/dL (32.0-36.0); MEAN CORPUSCULAR HEMOGLOB 27.6 pg (26.0-34.0); MEAN CORPUSCULAR VOLUME 84.2 fL (80-100); MEAN PLATELET VOLUME 9.3 fL (9.2-13.0); MONOCYTES 6.8 %; MONOCYTES ABSOLUTE 0.29 10/3/uL (0.21-1.20); NEUTROPHILS 45.9 %; NEUTROPHILS ABSOLUTE 1.95 10/3/uL (2.02-8.40); PLATELET COUNT 201 10/3/uL (150-400); RBC DISTRIBUTION WIDTH 15.9 % (12.0-16.0); RED CELL COUNT 3.04 10/6/uL (4.0-5.6); WHITE BLOOD CELLS 4.3 10/3/uL (4.5-10.5)
[2016-11-02 05:34] LABS: INTERNATIONAL NORMAL RATI 3.5 UNITS (-); PROTIME (NOT ORD) 34.7 SEC (12.0-14.5)
[2016-11-02 05:36] LABS: BUN (BLOOD UREA NITROGEN) 22 MG/DL (6-23); CALCIUM, SERUM 7.5 MG/DL (8.5-10.4); CHLORIDE, SERUM 106 MMOL/L (96-112); CO2 (CARBON DIOXIDE) 27 MMOL/L (24-34); CREATININE 0.97 MG/DL (0.55-1.02); GFR AFRICAN AMERICAN 66 ML/MIN (>=60); GFR NON AFRICAN AMERICAN 57 ML/MIN (>=60); POTASSIUM, SERUM 4.8 MMOL/L (3.5-5.3); SODIUM, SERUM 139 MMOL/L (135-148)
[2016-11-02 05:38] LABS: GLUCOSE, SERUM 96 MG/DL (60-99); MANUAL DIFF NO %
[2016-11-02 06:02] LABS: PROCALCITONIN 0.11 ng/mL (<0.5)
[2016-11-03 05:52] LABS: BASOPHILS 0 %; EOSINOPHILS 0 %; HEMOGLOBIN 8.9 g/dL (12.0-16.0); IMMATURE GRANULOCYTES 0.5 %; IMMATURE GRANULOCYTES ABSOLUTE 0.03 10/3/uL (0.0-0.11); LYMPHOCYTES 35.7 %; LYMPHOCYTES ABSOLUTE 2.02 10/3/uL (0.67-4.30); MEAN CORPUSCULAR HEMOGLOB 27.3 pg (26.0-34.0); MEAN CORPUSCULAR VOLUME 82.8 fL (80-100); MEAN PLATELET VOLUME 9.3 fL (9.2-13.0); MONOCYTES 9.2 %; MONOCYTES ABSOLUTE 0.52 10/3/uL (0.21-1.20); NEUTROPHILS 54.6 %; NEUTROPHILS ABSOLUTE 3.09 10/3/uL (2.02-8.40); PLATELET COUNT 223 10/3/uL (150-400); RBC DISTRIBUTION WIDTH 15.5 % (12.0-16.0); RED CELL COUNT 3.26 10/6/uL (4.0-5.6); WHITE BLOOD CELLS 5.7 10/3/uL (4.5-10.5)
[2016-11-03 06:01] LABS: MANUAL DIFF NO %
[2016-11-03 06:02] LABS: INTERNATIONAL NORMAL RATI 2.4 UNITS (-)
[2016-11-03 06:13] LABS: CHLORIDE, SERUM 100 MMOL/L (96-112); CO2 (CARBON DIOXIDE) 27 MMOL/L (24-34); GFR AFRICAN AMERICAN 98 ML/MIN (>=60); GFR NON AFRICAN AMERICAN 84 ML/MIN (>=60); POTASSIUM, SERUM 4.6 MMOL/L (3.5-5.3); SODIUM, SERUM 135 MMOL/L (135-148)
[2016-11-03 06:14] LABS: PROTIME (NOT ORD) 26.3 SEC (12.0-14.5)
[2016-11-03 06:17] LABS: BUN (BLOOD UREA NITROGEN) 18 MG/DL (6-23); CALCIUM, SERUM 8.5 MG/DL (8.5-10.4); GLUCOSE, SERUM 132 MG/DL (60-99)
[2016-11-03 11:47] LABS: T PROTEIN (ELECT)(NOT OR 6.1 G/DL (6.0-8.5)
[2016-11-03 12:11] LABS: PROCALCITONIN 0.05 ng/mL (<0.5)
[2016-11-03 12:51] LABS: % IRON SAT 8 % (20-50); FERRITIN 39 NG/ML (8-252); IRON BINDING CAPACITY 277 MCG/DL (225-410); IRON, SERUM 23 MCG/DL (35-150)
[2016-11-04 04:40] LABS: HEMOGLOBIN 9.1 g/dL (12.0-16.0); MEAN CORPUS HGB CONC 32.5 g/dL (32.0-36.0); MEAN CORPUSCULAR HEMOGLOB 27.2 pg (26.0-34.0); MEAN CORPUSCULAR VOLUME 83.6 fL (80-100); MEAN PLATELET VOLUME 9.7 fL (9.2-13.0); PLATELET COUNT 268 10/3/uL (150-400); RBC DISTRIBUTION WIDTH 15.2 % (12.0-16.0); RED CELL COUNT 3.35 10/6/uL (4.0-5.6); WHITE BLOOD CELLS 6.5 10/3/uL (4.5-10.5)
[2016-11-04 04:42] LABS: MANUAL DIFF YES %
[2016-11-04 04:44] LABS: INTERNATIONAL NORMAL RATI 2.1 UNITS (-); PROTIME (NOT ORD) 23.3 SEC (12.0-14.5)
[2016-11-04 05:04] LABS: LYMPHOCYTES 28 %; LYMPHOCYTES ABSOLUTE (CALC) 1.82 10/3/uL (0.67-4.30); MONOCYTES 2 %; MONOCYTES ABSOLUTE (CALC) 0.13 10/3/uL (0.21-1.20); NEUTROPHILS ABSOLUTE (CALC) 4.55 10/3/uL (2.02-8.40); PLATELET ESTIMATE ADQ (ADEQUATE); RBC MORPHOLOGY NORM (NORMAL); SEGMENTED NEUTROPHIL (0) 70 %; TOTAL NUCLEATED CELLS 100
[2016-11-04 06:14] LABS: ALBUMIN 2.5 G/DL (3.5-5.0); CALCIUM, SERUM 8.8 MG/DL (8.5-10.4); CHLORIDE, SERUM 96 MMOL/L (96-112); CO2 (CARBON DIOXIDE) 25 MMOL/L (24-34); CREATININE 0.82 MG/DL (0.55-1.02); GFR AFRICAN AMERICAN 81 ML/MIN (>=60); GFR NON AFRICAN AMERICAN 70 ML/MIN (>=60); GLUCOSE, SERUM 158 MG/DL (60-99); POTASSIUM, SERUM 4.6 MMOL/L (3.5-5.3); SODIUM, SERUM 135 MMOL/L (135-148)
[2016-11-04 06:16] LABS: BUN (BLOOD UREA NITROGEN) 22 MG/DL (6-23); PHOSPHORUS, SERUM 3.2 MG/DL (2.5-4.5)
[2016-11-04 10:45] LABS: A/G 0.99 RATIO (0.9-2.10); ABNORMAL PEAK 1 % 3.3 % (0); ALB RELATIVE % 49.8 % (60.0-89.0); ALBUMIN (ELECTRO) 3.04 GM/DL (3.2-5.5); ALPHA 1 (ELECTRO) 0.23 GM/DL (0.1-0.4); ALPHA 1 RELAT % (NOT ORD) 3.7 % (1.0-4.0); ALPHA 2 (ELECTRO) 0.98 GM/DL (0.5-1.10); BETA GLOBULIN (SPE) 0.74 GM/DL (0.60-1.30); BETA RELATIVE % 12.2 % (9.0-22.0); GAMMA GLOBULIN (SPE) 1.12 G/DL (0.70-1.60); GAMMA RELAT % 18.3 % (6.0-22.0)
[2016-11-05 06:21] LABS: BASOPHILS 0 %; EOSINOPHILS 0.2 %; EOSINOPHILS ABSOLUTE 0.02 10/3/uL (0.0-0.53); HEMATOCRIT 26.3 % (36.0-48.0); HEMOGLOBIN 8.8 g/dL (12.0-16.0); IMMATURE GRANULOCYTES ABSOLUTE 0.09 10/3/uL (0.0-0.11); LYMPHOCYTES 27.5 %; LYMPHOCYTES ABSOLUTE 2.52 10/3/uL (0.67-4.30); MEAN CORPUS HGB CONC 33.5 g/dL (32.0-36.0); MEAN CORPUSCULAR HEMOGLOB 27.4 pg (26.0-34.0); MEAN CORPUSCULAR VOLUME 81.9 fL (80-100); MEAN PLATELET VOLUME 9.6 fL (9.2-13.0); MONOCYTES 8.1 %; MONOCYTES ABSOLUTE 0.74 10/3/uL (0.21-1.20); NEUTROPHILS 63.2 %; NEUTROPHILS ABSOLUTE 5.81 10/3/uL (2.02-8.40); PLATELET COUNT 281 10/3/uL (150-400); RBC DISTRIBUTION WIDTH 15.4 % (12.0-16.0); RED CELL COUNT 3.21 10/6/uL (4.0-5.6)
[2016-11-05 06:22] LABS: MANUAL DIFF NO %; WHITE BLOOD CELLS 9.2 10/3/uL (4.5-10.5)
[2016-11-05 06:31] LABS: INTERNATIONAL NORMAL RATI 2.1 UNITS (-)
[2016-11-05 06:35] LABS: ALBUMIN 2.5 G/DL (3.5-5.0); CALCIUM, SERUM 8.5 MG/DL (8.5-10.4); CHLORIDE, SERUM 96 MMOL/L (96-112); CO2 (CARBON DIOXIDE) 27 MMOL/L (24-34); CREATININE 0.85 MG/DL (0.55-1.02); GFR AFRICAN AMERICAN 77 ML/MIN (>=60); GFR NON AFRICAN AMERICAN 67 ML/MIN (>=60); GLUCOSE, SERUM 147 MG/DL (60-99); PHOSPHORUS, SERUM 2.8 MG/DL (2.5-4.5); POTASSIUM, SERUM 4.6 MMOL/L (3.5-5.3); SODIUM, SERUM 135 MMOL/L (135-148)
[2016-11-05 06:36] LABS: BUN (BLOOD UREA NITROGEN) 26 MG/DL (6-23)
[2016-11-05 22:50] LABS: ALDOSTERONE <3.0 ng/dL (<39.2)
[2016-11-06 05:46] LABS: BASOPHILS 0.1 %; BASOPHILS ABSOLUTE 0.01 10/3/uL (0.0-0.16); EOSINOPHILS 0.4 %; EOSINOPHILS ABSOLUTE 0.04 10/3/uL (0.0-0.53); HEMATOCRIT 27.8 % (36.0-48.0); HEMOGLOBIN 9.2 g/dL (12.0-16.0); IMMATURE GRANULOCYTES 1.7 %; IMMATURE GRANULOCYTES ABSOLUTE 0.18 10/3/uL (0.0-0.11); LYMPHOCYTES 23.1 %; LYMPHOCYTES ABSOLUTE 2.48 10/3/uL (0.67-4.30); MEAN CORPUS HGB CONC 33.1 g/dL (32.0-36.0); MEAN CORPUSCULAR HEMOGLOB 27.3 pg (26.0-34.0); MEAN CORPUSCULAR VOLUME 82.5 fL (80-100); MEAN PLATELET VOLUME 9.5 fL (9.2-13.0); MONOCYTES 8.7 %; MONOCYTES ABSOLUTE 0.93 10/3/uL (0.21-1.20); NEUTROPHILS ABSOLUTE 7.11 10/3/uL (2.02-8.40); PLATELET COUNT 321 10/3/uL (150-400); RBC DISTRIBUTION WIDTH 15.8 % (12.0-16.0); RED CELL COUNT 3.37 10/6/uL (4.0-5.6); WHITE BLOOD CELLS 10.8 10/3/uL (4.5-10.5)
[2016-11-06 05:50] LABS: BUN (BLOOD UREA NITROGEN) 26 MG/DL (6-23); CALCIUM, SERUM 8.6 MG/DL (8.5-10.4); CHLORIDE, SERUM 98 MMOL/L (96-112); CO2 (CARBON DIOXIDE) 27 MMOL/L (24-34); CREATININE 0.91 MG/DL (0.55-1.02); GFR AFRICAN AMERICAN 71 ML/MIN (>=60); GFR NON AFRICAN AMERICAN 61 ML/MIN (>=60); POTASSIUM, SERUM 5.1 MMOL/L (3.5-5.3); SODIUM, SERUM 134 MMOL/L (135-148)
[2016-11-06 05:51] LABS: GLUCOSE, SERUM 102 MG/DL (60-99)
[2016-11-06 05:53] LABS: MANUAL DIFF NO %
[2016-11-06 06:08] LABS: INTERNATIONAL NORMAL RATI 2.5 UNITS (-)
[2016-11-06 06:15] LABS: PROTIME (NOT ORD) 26.5 SEC (12.0-14.5)
[2016-11-06] MEDS ORDERED: NORV5 PO (17:08)
[2016-11-06] MEDS ORDERED: HCTZ12.5 PO (17:09)
[2016-11-06] MEDS ORDERED: MIRAPEX5 PO (17:11)
[2016-11-06] MEDS ORDERED: FERROUS SULF325 M1 PO (17:15)
[2016-11-06] MEDS ORDERED: KLONO5 PO (17:16)
[2016-11-07 11:30] LABS: TIME 24 h (()); VOLUME 2800 mL (())
[2016-11-10 18:33] LABS: METANEPHRINE [CALC] 0.227 mg/24h (0.052-0.341); NORMETANEPHRINE [CALC] 0.417 mg/24h (0.088-0.444); TOTAL METANEPHRINES [CALC] 0.644 mg/24h (0.140-0.785)
[2016-11-12 00:05] LABS: DOPAMINE [CALC] 232 ug/24h (88-420); EPINEPHRINE [CALC] <14 ug/24h (2-24); NOREPINEPHRINE [CALC] 34 ug/24h (12-86); TOTAL FREE CATECHOLAMINES 48 ug/24h (14-110)
== END 2016-11-06 18:51 | disposition home health service (06) | DRG 291 ==
LOC: ER 15:11 → CDU1 18:19 → CDU2 19:18 → 6NO 11-06 11:47
PROVIDERS: Emergency Medicine; Hospitalist; Internal Medicine Nephrology; Nurse Practitioner; Nurse Practitioner Family; Student in an Organized Health Care Education/Training Program
DX: I11.0 Hypertensive heart disease with heart failure (principal); G93.40 Encephalopathy, unspecified; E83.42 Hypomagnesemia; J44.0 Chronic obstructive pulmonary disease with (acute) lower respiratory infection; N39.0 Urinary tract infection, site not specified; I48.2 Chronic atrial fibrillation; R55 Syncope and collapse; E83.51 Hypocalcemia; J44.1 Chronic obstructive pulmonary disease with (acute) exacerbation; R44.2 Other hallucinations; D50.9 Iron deficiency anemia, unspecified; R19.5 Other fecal abnormalities; I50.32 Chronic diastolic (congestive) heart failure; J20.9 Acute bronchitis, unspecified; B96.20 Unspecified Escherichia coli [E. coli] as the cause of diseases classified elsewhere; T42.8X5A Adverse effect of antiparkinsonism drugs and other central muscle-tone depressants, initial encounter; I73.9 Peripheral vascular disease, unspecified; F32.9 Major depressive disorder, single episode, unspecified; T43.215A Adverse effect of selective serotonin and norepinephrine reuptake inhibitors, initial encounter; Z87.440 Personal history of urinary (tract) infections; Z86.73 Personal history of transient ischemic attack (TIA), and cerebral infarction without residual deficits; Z79.01 Long term (current) use of anticoagulants; Z90.49 Acquired absence of other specified parts of digestive tract; Z68.35 Body mass index [BMI] 35.0-35.9, adult; Z90.710 Acquired absence of both cervix and uterus; Z88.0 Allergy status to penicillin; Z96.653 Presence of artificial knee joint, bilateral; Z91.018 Allergy to other foods; Z88.5 Allergy status to narcotic agent; Z79.82 Long term (current) use of aspirin; Z87.891 Personal history of nicotine dependence
CPT/HCPCS: 36600; 70450; 71010; 71275; 80048; 80069; 81001; 82088; 82272; 82330; 82384; 82533; 82607; 82728; 82805; 82962; 83036; 83540; 83550; 83735; 83835; 83880; 84145; 84155; 84165; 84484; 85025; 85610; 85730; 93005; 93975; 94640; 97161-GP; 99291; A9270-GY; G8978-CI-GP; G8979-CI-GP; G8980-CI-GP; J0360; J0834; J2916; Q9967

== ENCOUNTER 2016-11-07 22:05 | Emergency (ER) | payer MEDICARE, OTHER ==
[~2016-11-07 22:05] MED LIST changes: +FERROUS SULF325 M1 PO; +HCTZ12.5 PO; +KLONO5 PO
[2016-11-07 22:38] LABS: ASCORBIC ACID (UR NOT ORDER) NEG (NEG); BILIRUBIN, URINE NEGATIVE (NEG); ER URINALYSIS TAT 0 Hrs 11 Mins; KETONE, URINE NEGATIVE (NEG); LEUKOCYTE ESTERASE(NOT OR NEG (NEG); NITRITE (URINE) NEG (NEG); WBC (NOT ORDERED) (RFLEX) 1 (0-5)
[2016-11-07 22:59] LABS: BASOPHILS 0.1 %; BASOPHILS ABSOLUTE 0.01 10/3/uL (0.0-0.16); EOSINOPHILS 0.4 %; EOSINOPHILS ABSOLUTE 0.04 10/3/uL (0.0-0.53); HEMOGLOBIN 9.3 g/dL (12.0-16.0); IMMATURE GRANULOCYTES 2.3 %; IMMATURE GRANULOCYTES ABSOLUTE 0.21 10/3/uL (0.0-0.11); LYMPHOCYTES ABSOLUTE 2.62 10/3/uL (0.67-4.30); MEAN CORPUS HGB CONC 33.2 g/dL (32.0-36.0); MEAN CORPUSCULAR HEMOGLOB 27.4 pg (26.0-34.0); MEAN CORPUSCULAR VOLUME 82.6 fL (80-100); MONOCYTES 12.7 %; MONOCYTES ABSOLUTE 1.15 10/3/uL (0.21-1.20); NEUTROPHILS 55.5 %; NEUTROPHILS ABSOLUTE 5.02 10/3/uL (2.02-8.40); PLATELET COUNT 309 10/3/uL (150-400); RBC DISTRIBUTION WIDTH 15.9 % (12.0-16.0); RED CELL COUNT 3.39 10/6/uL (4.0-5.6); WHITE BLOOD CELLS 9.1 10/3/uL (4.5-10.5)
[2016-11-07 23:00] LABS: MANUAL DIFF NO %
[2016-11-07 23:08] LABS: CALCIUM, SERUM 8.7 MG/DL (8.5-10.4); CHLORIDE, SERUM 99 MMOL/L (96-112); CO2 (CARBON DIOXIDE) 28 MMOL/L (24-34); CREATININE 0.78 MG/DL (0.55-1.02); GFR AFRICAN AMERICAN 86 ML/MIN (>=60); GFR NON AFRICAN AMERICAN 74 ML/MIN (>=60); GLUCOSE, SERUM 96 MG/DL (60-99); POTASSIUM, SERUM 4.1 MMOL/L (3.5-5.3); SODIUM, SERUM 135 MMOL/L (135-148)
[2016-11-07 23:09] LABS: BUN (BLOOD UREA NITROGEN) 17 MG/DL (6-23)
[2016-11-07 23:20] LABS: BAND NEUTROPHILS 2 %; ER DIFF TAT 0 Hrs 27 Mins; IMMATURE GRANS ABSOLUTE (CALC) 0.09 10/3/uL (0.0-0.11); LYMPHOCYTES 27 %; LYMPHOCYTES ABSOLUTE (CALC) 2.46 10/3/uL (0.67-4.30); METAMYELOCYTES 1 %; MONOCYTES 6 %; MONOCYTES ABSOLUTE (CALC) 0.55 10/3/uL (0.21-1.20); NEUTROPHILS ABSOLUTE (CALC) 6.01 10/3/uL (2.02-8.40); PLATELET ESTIMATE ADQ (ADEQUATE); RBC MORPHOLOGY NORM (NORMAL); SEGMENTED NEUTROPHIL (0) 64 %; TOTAL NUCLEATED CELLS 100
== END 2016-11-08 01:05 | disposition home or self-care (01) ==
LOC: ER 22:05
PROVIDERS: Hospitalist
DX: J44.9 Chronic obstructive pulmonary disease, unspecified (principal); I10 Essential (primary) hypertension; E11.9 Type 2 diabetes mellitus without complications; Z87.891 Personal history of nicotine dependence; Z88.0 Allergy status to penicillin; Z88.5 Allergy status to narcotic agent; Z88.8 Allergy status to other drugs, medicaments and biological substances; Z79.82 Long term (current) use of aspirin; Z79.52 Long term (current) use of systemic steroids; Z79.01 Long term (current) use of anticoagulants; Z79.899 Other long term (current) drug therapy
CPT/HCPCS: 71010; 80048; 81001; 85025; 94640; 96374; 99284; A9270-GY; J0360